=== PATIENT | male | born 1970 | race Caucasian/White ===

== ENCOUNTER → 2016-06-14 | Outpatient (CLI) | payer BC | END | disposition home or self-care (01) | LOC: PCVCIMAG 08:01 | PROVIDERS: ATTEND Internal Medicine Cardiovascular Disease | DX: I10 Essential (primary) hypertension (principal); E11.9 Type 2 diabetes mellitus without complications; E78.5 Hyperlipidemia, unspecified; Z87.898 Personal history of other specified conditions; Z82.49 Family history of ischemic heart disease and other diseases of the circulatory system | CPT/HCPCS: 76770; 80061; 93005; 93306; 93975; G0463 ==

== ENCOUNTER → 2016-07-20 | Outpatient (CLI) | payer BC ==
--- NOTE | 2016-07-20 18:07 | PCVCIMAG ---
APPROVED REPORT Exam: Stress Echocardiogram Indication: DM, HTN, ABN EKG Stress Nurse: Haylee Wood, RN, Lisa Cottrell, RN Status: routine HR: 86 bpm Rhythm: , First degree AV Block Medical History Medical History: Diabetes Cardiac Risk Factors: FHX of CAD Procedure The patient underwent an Exercise Stress Test using the Brian Protocol. Blood pressure, heart rate, and EKG were monitored. An Echocardiogram was performed by fire technician in four stages in quad fashion. At peak stress, four selected images were obtained and placed side by side with resting images for comparison. Stress Test Details Stress Test: Exercise stress testing was performed using a Brian protocol. HR Resting HR: 86 bpmMax Heart Rate (APMHR): 174 bpm Max HR Achieved: 133 bpmTarget HR (85% APMHR): 147 bpm % of APMHR: 76 Recovery HR: 93 bpm HR response to stress: Normal HR response to stress BP Resting BP: 128/90 mmHg Max BP: 160/90 mmHg Recovery BP: 124/84 mmHg ECG Resting ECG: Sinus Rhythm Stress ECG: Sinus Rhythm ST Change: Normal Arrhythmia: None Recovery ECG: Sinus Rhythm Clinical Reason for Termination: Dyspnea Stress Symptoms: Dyspnea Exercise duration: 7 min 20 sec Exercise capacity: 10.1 METs Overall Exercise Capacity for Age: Average Pre-Stress Echo The resting Echocardiogram showed normal left ventricular contractility with an estimated Ejection Fraction of about 50-55%. Normal wall motion in all segments on baseline images. Post-Stress Echo The stress Echocardiogram showed normal left ventricular contractility with an estimated Ejection Fraction of about 60-65%. Normal augmentation of wall motion in all segments on post stress images. Clinical No clinical or ECG evidence for ischemia. Conclusion Clinical Response: Non-ischemic Exercise Capacity: Average Stress ECG Response: Non-ischemic Stress Echo Images: Non-ischemic
== END | disposition home or self-care (01) ==
LOC: PCVCIMAG 14:14
PROVIDERS: ATTEND Internal Medicine Cardiovascular Disease
DX: I10 Essential (primary) hypertension (principal); E11.9 Type 2 diabetes mellitus without complications; Z82.49 Family history of ischemic heart disease and other diseases of the circulatory system
CPT/HCPCS: 93325; 93351